=== PATIENT | male | born 1960 | race Hispanic/Latino ===

== ENCOUNTER 2019-02-03 17:45 | Emergency (ER) | payer SELFPAY ==
[2019-02-03 18:06] VITALS: BP 162/92
--- NOTE | 2019-02-03 18:06 | Emergency Department Report ---
Blank Doc - Documentation Documentation: 58 y o male presents to ed CC OF 'TIGHTNESS IN MY HEAD" denies head pain, cp, injury or trauma hx of bipolar, schizoaffective disorder main eval
== END 2019-02-03 18:10 | disposition left against medical advice (07) ==
LOC: ED 17:45 → MERGE 17:45 → ED 18:10
DX: R51 Headache (principal); Z53.21 Procedure and treatment not carried out due to patient leaving prior to being seen by health care provider

== ENCOUNTER 2019-02-05 07:27 | Emergency (ER) | payer MEDICARE ==
[2019-02-05 07:52] VITALS: BP 154/94
[2019-02-05] MEDS ORDERED: REGLAN IV ONE (09:00)
[2019-02-05] MEDS ORDERED: NACL 0.9% 1000 ML 1,000 ML IV ONE (09:00)
[2019-02-05] MEDS ORDERED: BENADRYL IV ONE (09:00)
--- NOTE | 2019-02-05 10:09 | Emergency Department Report ---
ED Headache HPI - General Chief Complaint: Headache Stated Complaint: HEAD PRESSURE Time Seen by Provider: 02/05/19 08:58 - History of Present Illness Initial Comments: This is a 58-year-old male nontoxic, well nourished in appearance, no acute signs of distress presents to the ED with c/o of acute on chronic headache. Patient stated that his headache causes him to stomach discomfort. Patient otherwise denies any abdominal pain. Patient describes headache as diffuse with level of 3 out of 10. Patient denies thunderclap headache. Patient denies any radiation of pain. Patient denies any head trauma. Patient denies any visual changes. Patient denies worse headache. Patient stated that darkness makes headache better and bright lights make the headache worse. Patient denies any numbness, tingling, fever, chills, nausea, vomiting, chest pain, shortness of breath, stiff neck. Patient denies facial drooping or one sided weakness. Patient denies any radiation of pain. Patient stated allergies to divalproex sodium. Timing/Duration: episodic Quality: mild Head Injury Location: other (diffuse) Recent Head Trauma: no recent headache/trauma, occasional headaches Associated Symptoms: denies symptoms. denies: confusion, fatigue, facial pain, fever/chills, flushing, loss of consciousness, nausea/vomiting, nasal congestion, nasal drainage, numbness in legs/feet, rash, seizures, sinus infe ction, stiff neck, vision changes, weakness Allergies/Adverse Reactions: Allergies divalproex sodium [From Depakote] Allergy (Verified 02/05/19 07:42) Unknown Home Medications: Ambulatory Orders Butalb/Acetamin/Caff 50-325-40 [Fioricet] 1 tab PO Q6HR PRN #12 tab 02/05/19 ED Review of Systems ROS: Stated complaint: HEAD PRESSURE Other details as noted in HPI Constitutional: denies: chills, fever Eyes: denies: eye pain, eye discharge, vision change ENT: denies: ear pain, throat pain Respiratory: denies: cough, shortness of breath, wheezing Cardiovascular: denies: chest pain, palpitations Endocrine: no symptoms reported Gastrointestinal: denies: abdominal pain, nausea, diarrhea Genitourinary: denies: urgency, dysuria Musculoskeletal: denies: back pain, joint swelling, arthralgia Skin: denies: rash, lesions Neurological: headache. denies: weakness, paresthesias Psychiatric: denies: anxiety, depression Hematological/Lymphatic: denies: easy bleeding, easy bruising ED Past Medical Hx - Past Medical History Previous Medical History?: Yes Hx Hypertension: Yes Hx Diabetes: Yes Additional medical history: enlarged prostate. - Surgical History Past Surgical History?: Yes Hx Cholecystectomy: Yes Additional Surgical History: Left arm - Social History Smoking Status: Never Smoker Substance Use Type: None - Medications Home Medications: Home Medications Medication Instructions Recorded Confirmed Last Taken Type Butalb/Acetamin/Caff 50-325-40 1 tab PO Q6HR PRN #12 tab 02/05/19 Unknown Rx [Fioricet] ED Physical Exam - General Limitations: No Limitations General appearance: alert, in no apparent distress - Head Head exam: Present: atraumatic, normocephalic - Eye Eye exam: Present: normal appearance, PERRL, EOMI - Neck Neck exam: Present: normal inspection, full ROM. Absent: tenderness, meningismus, lymphadenopathy - Respiratory Respiratory exam: Present: normal lung sounds bilaterally. Absent: respiratory distress, wheezes, rales, rhonchi, stridor, chest wall tenderness, decreased breath sounds, prolonged expiratory - Cardiovascular Cardiovascular Exam: Present: regular rate, normal rhythm. Absent: bradycardia, tachycardia, irregular rhythm, systolic murmur, diastolic murmur, rubs, gallop - GI/Abdominal GI/Abdominal exam: Present: soft, normal bowel sounds. Absent: distended, tenderness, guarding, rebound, rigid, diminished bowel sounds - Rectal Rectal exam: Present: deferred - Extremities Exam Extremities exam: Present: normal inspection, full ROM - Back Exam Back exam: Present: normal inspection, full ROM. Absent: tenderness, CVA tenderness (R), CVA tenderness (L), muscle spasm, paraspinal tenderness, vertebral tenderness, rash noted - Neurological Exam Neurological exam: Present: alert, oriented X3, normal gait - Expanded Neurological Exam Expanded Patient oriented to: Present: person, place, time Cranial nerves: EOM's Intact: Normal, Facial Sensation: Normal Cerebellar function: Finger to Nose: Normal Upper motor neuron: Pronator Drift: Normal, Sensory Extinction: Normal Motor strength exam: RUE: 5, LUE: 5, RLE: 5, LLE: 5 Best Eye Response ([place]): (4) open spontaneously Best Motor Response ([place]): (6) obeys commands Best Verbal Response ([place]): (5) oriented [place] Total: 15 - Psychiatric Psychiatric exam: Present: normal affect, normal mood - Skin Skin exam: Present: warm, dry, intact, normal color. Absent: rash ED Course Vital Signs 02/05/19 07:51 Temperature 97.3 F L Pulse Rate 79 Respiratory 18 Rate Blood Pressure 154/94 O2 Sat by Pulse 98 Oximetry - Reevaluation(s) Reevaluation #1: 02/05/19 10:13 Patient is speaking in full sentences with no signs of distress noted. ED Medical Decision Making - Lab Data Result diagrams: 02/05/19 09:35 02/05/19 09:35 - Medical Decision Making This is a 58-year-old female that presents with headache. Patient is stable and was examined by me. Patient is neurologically stable. There is no stiff neck or neck pain. Vital signs are stable. Patient is afebrile. Labs obtained. Patient received K+ PO. Patient received Benadryl, Reglan, and 1 L of normal saline which the patient stated that headache has subsided and resolved. Patient was instructed not to operate any machinery after discharged due to drowsiness of Benadryl. Patient stated that a family member will drive patient home. Patient is discharged with Fioricet. Patient was referred to Follow-up with a primary care/neurologist doctor in 3-5 days or if symptoms worsen and continue return to emergency room as soon as possible. At time of discharge, the patient does not seem toxic or ill in appearance. No acute signs of distress noted. Patient agrees to discharge treatment plan of care. No further questions noted by the patient. Critical care attestation.: If time is entered above; I have spent that time in minutes in the direct care of this critically ill patient, excluding procedure time. ED Disposition Clinical Impression: Hypokalemia Headache Qualifiers: Headache type: unspecified Headache chronicity pattern: episodic headache Intractability: not intractable Qualified Code(s): R51 - Headache Disposition: DC-01 TO HOME OR SELFCARE Is pt being admited?: No Does the pt Need Aspirin: No Condition: Stable Instructions: Butalbital/Aspirin/Caffeine (By mouth), Acute Headache (ED) Additional Instructions: Follow-up with a primary care doctor in 3-5 days or if symptoms worsen and continue return to emergency room as soon as possible. Prescriptions: Butalb/Acetamin/Caff 50-325-40 [Fioricet] 1 tab PO Q6HR PRN #12 tab PRN Reason: Headache Referrals: BRADY TAYLOR [Other] - 3-5 Days PRIMARY CARE, [Referring] - 3-5 Days FIORDALIZA DESIR MD [Staff Physician] - 3-5 Days [facility] [Outside] - 3-5 Days [facility] [Outside] - 3-5 Days
[2019-02-05 10:37] LABS: Basophils % (Auto) 0.3 % (0.0-1.8); Eosinophils % (Auto) 0.5 % (0.0-4.3); Hematocrit 36.6 % (35.5-45.6); Hemoglobin 12.2 gm/dl (11.8-15.2); Lymphocytes # (Auto) 0.4 K/mm3 (1.2-5.4); Lymphocytes % (Auto) 8.7 % (13.4-35.0); Mean Corpuscular HGB Conc 34 % (32-34); Mean Corpuscular Volume 89 fl (84-94); Monocytes # (Auto) 0.4 K/mm3 (0.0-0.8); Monocytes % (Auto) 8.6 % (0.0-7.3); Platelet Count 319 K/mm3 (140-440); Red Cell Distribution Width 14.6 % (13.2-15.2)
[2019-02-05 10:57] LABS: Alanine Aminotransferase 11 units/L (7-56); Albumin 4.5 g/dL (3.9-5); BUN/Creatinine Ratio 9; Blood Urea Nitrogen 6 mg/dL (9-20); Calcium 9.3 mg/dL (8.4-10.2); Hemolysis Index 9
[2019-02-05 10:58] LABS: Bilirubin,Direct < 0.2 mg/dL (0-0.2)
[2019-02-05] MEDS ORDERED: K-DUR PO ONE (10:58)
== END 2019-02-05 11:13 | disposition home or self-care (01) ==
LOC: EDSEX → ED 07:27
DX: E87.6 Hypokalemia (principal); R51 Headache; I10 Essential (primary) hypertension; E11.9 Type 2 diabetes mellitus without complications; Z90.49 Acquired absence of other specified parts of digestive tract; Z88.8 Allergy status to other drugs, medicaments and biological substances
CPT/HCPCS: 36415; 80048; 80076; 83690; 85025; 96374; 96375; 99284; J1200; J2765; J7030; 99283; Q0177

== ENCOUNTER 2019-02-05 15:23 | Emergency (ER) | payer MEDICARE ==
--- NOTE | 2019-02-05 15:32 | Emergency Department Report ---
Chief Complaint: Dizziness Stated Complaint: ANXIETY Time Seen by Provider: 02/05/19 15:30 - HPI History of Present Illness: SCHIZO OFF MEDS ANXIOUS NO SI NO HI SEEN EARLIER TODAY IN [place] FOR HEAD PRESSURE PT LEFT THEN GOT DIZZY AND FELL. ON EXAM I SUSPECT THIS IS MH/SOCIAL ISSUE. MSE COMPLETED - Exam Vital Signs: Vital Signs 02/05/19 15:29 Temperature 97.6 F Pulse Rate 99 H Respiratory 20 Rate Blood Pressure 139/87 O2 Sat by Pulse 98 Oximetry MSE screening note: Focused history and physical exam performed. Due to findings the following was ordered: ED Disposition for MSE Condition: Stable Referrals: JAYY KAT MD [Primary Care Provider] - 3-5 Days
[2019-02-05] MEDS ORDERED: ATIVAN PO ONE (20:19)
[2019-02-05] MEDS ORDERED: VISTARIL PO ONE (20:27)
--- NOTE | 2019-02-05 20:48 | Emergency Department Report ---
ED Psych HPI - General Chief Complaint: Dizziness Stated Complaint: ANXIETY Time Seen by Provider: 02/05/19 15:30 Source: patient, EMS Mode of arrival: Wheelchair - History of Present Illness Initial Comments: Patient is a 58-year-old male who is presenting with nervousness. The patient was here earlier today for headache and was given a prescription for Fioricet which she has not filled. Patient states he feels dizzy and he feels like he is going to because of the dizziness. Patient states he is very anxious and has run out of his Vistaril. Patient denies homicidal suicidal ideations at this time. He denies any cough, congestion fevers chills. MD Complaint: other (very anxious) - Related Data Previous Rx's Medication Instructions Recorded Last Taken Type Butalb/Acetamin/Caff 50-325-40 1 tab PO Q6HR PRN #12 tab 02/05/19 Unknown Rx [Fioricet] hydrOXYzine PAMOATE [Vistaril] 50 mg PO Q6HR #30 capsule 02/05/19 Unknown Rx Allergies Allergy/AdvReac Type Severity Reaction Status Date / Time divalproex sodium Allergy Unknown Verified 02/05/19 07:42 [From Depakote] ED Review of Systems ROS: Stated complaint: ANXIETY Other details as noted in HPI Comment: All other systems reviewed and negative ED Past Medical Hx - Past Medical History Hx Hypertension: Yes Hx Diabetes: Yes Additional medical history: enlarged prostate. - Surgical History Hx Cholecystectomy: Yes Additional Surgical History: Left arm - Social History Smoking Status: Unknown if ever smoked Substance Use Type: None - Medications Home Medications: Home Medications Medication Instructions Recorded Confirmed Last Taken Type Butalb/Acetamin/Caff 50-325-40 1 tab PO Q6HR PRN #12 tab 02/05/19 Unknown Rx [Fioricet] hydrOXYzine PAMOATE [Vistaril] 50 mg PO Q6HR #30 capsule 02/05/19 Unknown Rx ED Physical Exam - General Limitations: No Limitations General appearance: alert, in no apparent distress, anxious - Head Head exam: Present: atraumatic, normocephalic - Eye Eye exam: Present: normal appearance - ENT ENT exam: Present: mucous membranes moist - Neck Neck exam: Present: normal inspection - Respiratory Respiratory exam: Present: normal lung sounds bilaterally. Absent: respiratory distress, wheezes, rales, rhonchi - Cardiovascular Cardiovascular Exam: Present: regular rate, normal rhythm. Absent: systolic murmur, diastolic murmur, rubs, gallop - GI/Abdominal GI/Abdominal exam: Present: soft, normal bowel sounds. Absent: distended, tenderness, guarding, rebound - Rectal Rectal exam: Present: deferred - Extremities Exam Extremities exam: Present: normal inspection - Back Exam Back exam: Present: normal inspection - Neurological Exam Neurological exam: Present: alert, oriented X3 - Psychiatric Psychiatric exam: Present: normal affect, normal mood - Skin Skin exam: Present: warm, dry, intact, normal color. Absent: rash ED Course Vital Signs 02/05/19 15:29 Temperature 97.6 F Pulse Rate 99 H Respiratory 20 Rate Blood Pressure 139/87 O2 Sat by Pulse 98 Oximetry ED Medical Decision Making - Medical Decision Making Patient given Ativan here be given a prescription for Vistaril to be discharged home. Critical care attestation.: If time is entered above; I have spent that time in minutes in the direct care of this critically ill patient, excluding procedure time. ED Disposition Clinical Impression: Anxiety Disposition: DC-01 TO HOME OR SELFCARE Is pt being admited?: No Does the pt Need Aspirin: No Condition: Stable Instructions: Generalized Anxiety Disorder (ED) Prescriptions: hydrOXYzine PAMOATE [Vistaril] 50 mg PO Q6HR #30 capsule Referrals: JAYY KAT MD [Primary Care Provider] - 3-5 Days Time of Disposition: 20:48
[2019-02-05 21:35] VITALS: BP 152/86
== END 2019-02-05 21:00 | disposition home or self-care (01) ==
LOC: ED 15:23
DX: F41.9 Anxiety disorder, unspecified (principal); E11.9 Type 2 diabetes mellitus without complications; I10 Essential (primary) hypertension; Z90.49 Acquired absence of other specified parts of digestive tract; Z88.8 Allergy status to other drugs, medicaments and biological substances
CPT/HCPCS: 99283; Q0177

== ENCOUNTER 2019-02-05 22:33 | Emergency (ER) | payer MEDICARE ==
[2019-02-05] MEDS ORDERED: GEODON IM ONE (22:54)
--- NOTE | 2019-02-05 23:35 | Emergency Department Report ---
Stated Complaint: AMS Time Seen by Provider: 02/05/19 22:47 - HPI History of Present Illness: Patient is a 58-year-old male who was just seen by me several hours ago and was to be discharged back to [place] with a prescription for Vistaril. Patient left before receiving his Ativan and has returned at this time because he states that he still very nervous. Patient states he left before getting his medications because he was nervous. Patient has no other complaints at this time. - ROS Review of Systems: All other systems are reviewed and are negative - Exam Vital Signs: Patient is alert and oriented 3 and in no acute distress. Patient's heart and lung exam are within normal limits. Abdomen soft and nontender. MSE screening note: Focused history and physical exam performed. Due to findings the following was ordered: ED Medical Decision Making - Medical Decision Making Her currently arranging transportation for the patient to [place]. Patient did receive his Ativan and also 10mg of Geodon. ED Disposition for MSE Clinical Impression: Anxiety Disposition: DC-01 TO HOME OR SELFCARE Is pt being admited?: No Does the pt Need Aspirin: No Condition: Stable
[2019-02-06] MEDS ORDERED: TYLENOL ONE (00:48)
[2019-02-06] MEDS ORDERED: TYLENOL PO ONE (00:49)
[2019-02-06 09:20] VITALS: BP 134/89
== END 2019-02-06 09:27 | disposition home or self-care (01) ==
LOC: ED 22:33 → MERGE 22:33 → ED 02-06 09:27
DX: F41.9 Anxiety disorder, unspecified (principal)
CPT/HCPCS: 96372; 99283; J3486

== ENCOUNTER 2019-02-07 13:30 | Emergency (ER) | payer MEDICARE ==
--- NOTE | 2019-02-07 14:44 | Emergency Department Report ---
ED General Adult HPI - General Chief complaint: Dizziness Stated complaint: DIZZY Time Seen by Provider: 02/07/19 13:55 Source: patient, EMS Mode of arrival: Stretcher Limitations: No Limitations - History of Present Illness Initial comments: Patient presents to the emergency department with a chief complaint of dizziness or ringing in his ears. Patient states he's had this before but cannot remember how long ago it was. Patient denies a headache or trauma. Patient states symptoms are worse with movement of his head. Patient also denies chest pain, shortness breath, or headache. -: Gradual Location: head Severity scale (0 -10): 0 Consistency: intermittent Improves with: rest Worsens with: movement Associated Symptoms: denies other symptoms Treatments Prior to Arrival: none - Related Data Previous Rx's Medication Instructions Recorded Last Taken Type Butalb/Acetamin/Caff 50-325-40 1 tab PO Q6HR PRN #12 tab 02/05/19 Unknown Rx [Fioricet] hydrOXYzine PAMOATE [Vistaril] 50 mg PO Q6HR #30 capsule 02/05/19 Unknown Rx Meclizine [Antivert] 25 mg PO TID PRN #30 tablet 02/07/19 Unknown Rx Allergies Allergy/AdvReac Type Severity Reaction Status Date / Time divalproex sodium Allergy Unknown Verified 02/05/19 07:42 [From [facility]] ED Review of Systems ROS: Stated complaint: DIZZY Other details as noted in HPI Comment: All other systems reviewed and negative Constitutional: denies: chills, fever Eyes: denies: eye pain, eye discharge, vision change ENT: denies: ear pain, throat pain Respiratory: denies: cough, shortness of breath, wheezing Cardiovascular: denies: chest pain, palpitations Endocrine: no symptoms reported Gastrointestinal: denies: abdominal pain, nausea, diarrhea Genitourinary: denies: urgency, dysuria Musculoskeletal: denies: back pain, joint swelling, arthralgia Skin: denies: rash, lesions Neurological: vertigo. denies: headache, weakness, paresthesias Psychiatric: denies: anxiety, depression Hematological/Lymphatic: denies: easy bleeding, easy bruising ED Past Medical Hx - Past Medical History Previous Medical History?: Yes Hx Hypertension: Yes Hx Diabetes: Yes Additional medical history: enlarged prostate. - Surgical History Past Surgical History?: Yes Hx Cholecystectomy: Yes Additional Surgical History: Left arm - Social History Smoking Status: Never Smoker Substance Use Type: None - Medications Home Medications: Home Medications Medication Instructions Recorded Confirmed Last Taken Type Butalb/Acetamin/Caff 50-325-40 1 tab PO Q6HR PRN #12 tab 02/05/19 Unknown Rx [Fioricet] hydrOXYzine PAMOATE [Vistaril] 50 mg PO Q6HR #30 capsule 02/05/19 Unknown Rx Meclizine [Antivert] 25 mg PO TID PRN #30 tablet 02/07/19 Unknown Rx ED Physical Exam - General Limitations: No Limitations General appearance: alert, in no apparent distress - Head Head exam: Present: atraumatic, normocephalic - Eye Eye exam: Present: normal appearance, PERRL, EOMI - ENT ENT exam: Present: mucous membranes moist - Neck Neck exam: Present: normal inspection - Respiratory Respiratory exam: Present: normal lung sounds bilaterally. Absent: respiratory distress, wheezes, rales - Cardiovascular Cardiovascular Exam: Present: regular rate, normal rhythm. Absent: systolic murmur, diastolic murmur, rubs, gallop - GI/Abdominal GI/Abdominal exam: Present: soft, normal bowel sounds. Absent: distended, tenderness - Rectal Rectal exam: Present: deferred - Extremities Exam Extremities exam: Present: normal inspection - Back Exam Back exam: Present: normal inspection - Neurological Exam Neurological exam: Present: alert, oriented X3, CN II-XII intact, other (able to re-create symptoms with rapid head and eye movement). Absent: motor sensory deficit - Psychiatric Psychiatric exam: Present: normal affect, normal mood - Skin Skin exam: Present: warm, dry, intact, normal color. Absent: rash ED Course Vital Signs 02/07/19 02/07/19 13:37 13:48 Temperature 97.8 F 97.9 F Pulse Rate 81 81 Respiratory 16 15 Rate Blood Pressure 134/86 Blood Pressure 139/87 [Right] O2 Sat by Pulse 100 98 Oximetry ED Medical Decision Making - Lab Data Lab Results 02/07/19 Range/Units 13:48 POC Glucose 102 (70-105) - Radiology Data Radiology results: report reviewed Critical care attestation.: If time is entered above; I have spent that time in minutes in the direct care of this critically ill patient, excluding procedure time. ED Disposition Clinical Impression: Vertigo Disposition: DC-01 TO HOME OR SELFCARE Is pt being admited?: No Does the pt Need Aspirin: No Condition: Stable Instructions: Vertigo (ED) Additional Instructions: return if worse Prescriptions: Meclizine [Antivert] 25 mg PO TID PRN #30 tablet PRN Reason: Vertigo Referrals: VALERY RAZA MD [Staff Physician] - 3-5 Days [facility] [Provider Group] - 3-5 Days [facility] [Provider Group] - 3-5 Days Time of Disposition: 15:01
--- NOTE | 2019-02-07 14:55 | Cat Scan Report ---
CT HEAD WITHOUT CONTRAST: HISTORY: Dizziness. TECHNIQUE: Sequential 2.5mm CT images. COMPARISON: none. FINDINGS: Cerebral Parenchyma: Within normal limits. Cerebellum: Within normal limits. Brainstem: Within normal limits. Ventricles: Normal. Sella: Normal. Extra-axial spaces: Normal. Basal Cisterns: Normal. Intracranial Hemorrhage: None. Midline Shift: None. Calvarium: Normal. Sinuses: Normal. Mastoid Air Cells: Normal. Visualized Orbits: Normal. IMPRESSION: Cranial CT scan within normal limits.
[2019-02-07] MEDS ORDERED: ANTIVERT PO ONE (14:57)
[2019-02-07 15:33] VITALS: BP 163/97
== END 2019-02-07 16:31 | disposition home or self-care (01) ==
LOC: ED 13:30
DX: R42 Dizziness and giddiness (principal); I10 Essential (primary) hypertension; E11.9 Type 2 diabetes mellitus without complications; Z88.8 Allergy status to other drugs, medicaments and biological substances; Z90.49 Acquired absence of other specified parts of digestive tract
CPT/HCPCS: 70450; 82962; 99283; 99284; Q0177

== ENCOUNTER 2019-02-07 17:43 | Emergency (ER) | payer MEDICARE | END 2019-02-07 17:45 | disposition home or self-care (01) | LOC: ED 17:43 → MERGE 17:43 → ED 17:45 | DX: M25.569 Pain in unspecified knee (principal); Z53.21 Procedure and treatment not carried out due to patient leaving prior to being seen by health care provider ==

== ENCOUNTER 2019-02-11 13:27 | Emergency (ER) | payer MEDICARE ==
--- NOTE | 2019-02-11 13:41 | Emergency Department Report ---
Blank Doc - Documentation Documentation: Patient reports homocidal suicidal with h/o bipolar and schizoaffective disord er. Rolo started this. The bentonl is telling him kill everyone and himselh. Psych: pt shaking positive suicide and homocide ideation Positive auditory hallucination A/P Mental health protocol Pt screened by provider and sent directly to psych area
[2019-02-11] MEDS ORDERED: ATIVAN IM PRN (13:51)
[2019-02-11] MEDS ORDERED: HALDOL IM PRN (13:51)
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
[2019-02-11 14:21] LABS: Basophils % (Auto) 0.9 % (0.0-1.8); Eosinophils % (Auto) 0.5 % (0.0-4.3); Hematocrit 38.2 % (35.5-45.6); Lymphocytes # (Auto) 0.7 K/mm3 (1.2-5.4); Lymphocytes % (Auto) 17.9 % (13.4-35.0); Mean Corpuscular HGB Conc 34 % (32-34); Mean Corpuscular Volume 89 fl (84-94); Monocytes # (Auto) 0.4 K/mm3 (0.0-0.8); Monocytes % (Auto) 8.9 % (0.0-7.3); Platelet Count 313 K/mm3 (140-440); Red Blood Count 4.29 M/mm3 (3.65-5.03); Red Cell Distribution Width 14.1 % (13.2-15.2)
[2019-02-11 14:35] LABS: Alanine Aminotransferase 15 units/L (7-56); Albumin 4.6 g/dL (3.9-5); BUN/Creatinine Ratio 12; Blood Urea Nitrogen 7 mg/dL (9-20); Calcium 9.6 mg/dL (8.4-10.2); Hemolysis Index 2
[2019-02-12 06:58] LABS: Bilirubin,Urine NEG (Negative); Blood,Urine NEG (Negative); Calcium Oxalate Crystals,Urine 3+; Color,Urine Yellow (Yellow); Mucus,Urine FEW /HPF; Protein,Urine <15 mg/dL mg/dL (Negative); Urobilinogen,Urine < 2.0 mg/dL (<2.0)
[2019-02-12 07:00] LABS: Amphetamine Screen,Urine PRESUMPTIVE NEGATIVE; Benzodiazepines Screen,Urine PRESUMPTIVE NEGATIVE; Cannabinoid Screen,Urine PRESUMPTIVE NEGATIVE; Cocaine Screen,Urine PRESUMPTIVE NEGATIVE; Methadone Screen,Urine PRESUMPTIVE NEGATIVE; Opiate Screen,Urine PRESUMPTIVE NEGATIVE
[2019-02-12 12:11] VITALS: BP 153/86
== END 2019-02-12 12:13 ==
LOC: EEVIPCON 13:27 → ED 13:27
DX: R45.851 Suicidal ideations (principal); R45.850 Homicidal ideations; R44.0 Auditory hallucinations; I10 Essential (primary) hypertension; E11.9 Type 2 diabetes mellitus without complications; Z90.49 Acquired absence of other specified parts of digestive tract; Z88.8 Allergy status to other drugs, medicaments and biological substances
CPT/HCPCS: 36415; 80053; 80307; 81001; 82550; 85025; 96372; 99285; G0480; J1630; J2060; 80320

== ENCOUNTER 2020-11-03 23:34 | Emergency (ER) | payer MEDICARE ==
[2020-11-04 03:11] LABS: Basophils % (Auto) 0.8 % (0.0-1.8); Eosinophils # (Auto) 0.2 K/mm3 (0.0-0.4); Eosinophils % (Auto) 3.6 % (0.0-4.3); Hematocrit 36.5 % (35.5-45.6); Hemoglobin 12.3 gm/dl (11.8-15.2); Lymphocytes # (Auto) 1.1 K/mm3 (1.2-5.4); Lymphocytes % (Auto) 17.6 % (13.4-35.0); Mean Corpuscular HGB Conc 34 % (32-34); Mean Corpuscular Volume 88 fl (84-94); Monocytes # (Auto) 0.5 K/mm3 (0.0-0.8); Monocytes % (Auto) 8.3 % (0.0-7.3); Platelet Count 326 K/mm3 (140-440); Red Blood Count 4.14 M/mm3 (3.65-5.03)
[2020-11-04 03:28] LABS: BUN/Creatinine Ratio 20; Blood Urea Nitrogen 18 mg/dL (9-20); Calcium 10.2 mg/dL (8.4-10.2); Hemolysis Index 8
== END 2020-11-04 09:24 | disposition left against medical advice (07) ==
LOC: ED 23:34
DX: R42 Dizziness and giddiness (principal); Z53.21 Procedure and treatment not carried out due to patient leaving prior to being seen by health care provider
CPT/HCPCS: 36415; 80048; 85025; 93005